=== PATIENT | male | born 1945 | race Caucasian/White ===

== ENCOUNTER 2017-01-11 10:44 | Emergency (ER) | payer MEDICARE, BC ==
--- NOTE | 2017-01-11 11:05 | Emergency Department Record ---
History of Present Illness - General Chief Complaint: Fall Injury Stated Complaint: FALL ON 01/09 Time Seen by Provider: 01/11/17 11:04 Source: Patient Mode of Arrival: Ambulatory Limitations: No limitations - History of Present Illness Initial Comments: The patient is here due to falling 4-5 feet 2 days ago and landing on his L side and arm injuring his L ribs. He denies any SOB, or JAIME since but has L rib pain with any bending, twisting, or lifting. He denies any head injury, back pain, fever, AP, nausea or vomiting. He has been eating and drinking normally with no issues. MD Complaint: Fall Onset/Timin -: Days(s) Fall From: From height (distance) When Fall Occurred: # Days [employer] Fall Witnessed: No Place Fall Occurred: Home Loss of Consciousness: None Prolonged Down Time?: No Symptoms Prior to Fall: None Location: Chest Severity: Mild Severity scale (1-10): 3 Quality: Aching Associated Symptoms: Denies - [place] Coma Scale Eye Response: (4) Open spontaneously Motor Response: (6) Obeys commands Verbal Response: (5) Oriented [place] Total: 15 - Related Data Home Medications Medication Instructions Recorded Confirmed Last Taken Aspirin Chewable 81 mg PO DAILY 01/11/17 01/11/17 01/10/17 Atorvastatin Calcium [Lipitor] 40 mg PO DAILY 01/11/17 01/11/17 01/10/17 Metformin HCl 500 mg PO BID 01/11/17 01/11/17 01/11/17 Allergies Allergy/AdvReac Type Severity Reaction Status Date / Time No Known Drug Allergies Allergy Verified 01/11/17 11:00 Travel Screening - Travel/Exposure Within Last 30 Days Have you traveled within the last 30 days?: No Review of Systems Constitutional: Denies: Chills, Fever Eyes: Denies: Eye discharge ENT: Denies: Congestion Respiratory: Denies: Cough, Dyspnea Past Medical History - SOCIAL HISTORY Smoking Status: Former smoker Alcohol Use: None Drug Use: None - RESPIRATORY Hx Respiratory Disorders: No - CARDIOVASCULAR Hx Cardio Disorders: Yes Hx Hypertension: Yes Comment:: high cholesterol - NEURO Hx Neuro Disorders: No - GI Hx GI Disorders: No - Hx Genitourinary Disorders: No - ENDOCRINE Hx Endocrine Disorders: Yes Hx Diabetes: Yes - MUSCULOSKELETAL Hx Musculoskeletal Disorders: No - PSYCH Hx Psych Problems: No - HEMATOLOGY/ONCOLOGY Hx Hematology/Oncology Disorders: No Family Medical History Any Significant Family History?: No Physical Exam - General General Appearance: Alert, Oriented x3, Cooperative, No acute distress - Head Head exam: Atraumatic, Normocephalic, Normal inspection - Eye Eye exam: Normal appearance, PERRL - Neck Neck exam: Normal inspection, Full ROM. negative: Tenderness - Respiratory Respiratory exam: Normal lung sounds bilaterally, Chest wall tenderness (There is reproducible rib tenderness to palpation over the L upper ribs in the mid axillary line.) - Cardiovascular Cardiovascular Exam: Regular rate, Normal rhythm, Normal heart sounds - GI/Abdominal GI/Abdominal exam: Soft, Normal bowel sounds. negative: Distended, Rebound, Rigid, Tenderness - Extremities Extremities exam: Full ROM. negative: Tenderness - Neurological Neurological exam: Alert, Normal gait. negative: Abnormal gait, Motor sensory deficit Course Vital Signs 01/11/17 10:55 Temperature 97.6 F Pulse Rate 56 L Respiratory 18 Rate Blood Pressure 174/79 Pulse Ox 98 Disposition Disposition: Discharge Clinical Impression: Contusion Qualifiers: Encounter type: initial encounter Contusion area: thoracic wall Disposition: Home, Self-Care Condition: (1) Good Instructions: Rib Contusion (ED) Additional Instructions: Please take Tylenol for pain and see your PCP if not better in 2-3 days. Return to the ER for any increased pain, fever, trouble breathing or shortness of breath. Forms: Patient Portal Access Time of Disposition: 11:50 Quality - Quality Measures Quality Measures: N/A - Blood Pressure Screening Blood Pressure Classification: Hypertensive Reading Systolic Measurement: 144 Diastolic Measurement: 72 Screening for High Blood Pressure: < Pre-Hypertensive BP, F/U Documented > [ [id number]] Pre-Hypertensive Follow-up Interventions: Follow-up with rescreen every year.
--- NOTE | 2017-01-12 09:36 | RADIOLOGY REPORT ---
EXAM: LEFT RIBS WITH PA CHEST HISTORY: LEFT UPPER RIB PAIN THREE DAYS POST FALL. TECHNIQUE: AP and oblique views of the left ribs were obtained as well as an upright PA view of the chest. Comparison: Radiographic examination of the lumbar spine dated 04/08/15. Encounter: Initial. FINDINGS: There is borderline osteopenia. No definite acute left rib fracture nor destructive bone lesion is seen. Age indeterminate though likely chronic deformity of the distal left sixth rib is, however, noted. The heart is not enlarged and the pulmonary vasculature is nondilated. The thoracic aorta is mildly tortuous and atherosclerotic. The lungs and pleural spaces to the extent visualized are clear. 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 There are degenerative changes scattered throughout the visualized spine and shoulder girdles. IMPRESSION: 1. NO DEFINITE ACUTE LEFT RIB FRACTURE IDENTIFIED. AGE INDETERMINATE THOUGH LIKELY CHRONIC DEFORMITY OF THE DISTAL LEFT SIXTH RIB. 2. NO EVIDENCE OF ACUTE CARDIOPULMONARY DISEASE. JOB NUMBER: [id number] MTDD
== END 2017-01-11 12:01 | disposition home or self-care (01) ==
LOC: ER 10:44
DX: S20.222A Contusion of left back wall of thorax, initial encounter (principal); R07.81 Pleurodynia; W17.89XA Other fall from one level to another, initial encounter; I10 Essential (primary) hypertension; Y92.009 Unspecified place in unspecified non-institutional (private) residence as the place of occurrence of the external cause; Z87.891 Personal history of nicotine dependence
CPT/HCPCS: 99283